=== PATIENT | male | born 1940 | race Caucasian/White ===

== ENCOUNTER 2017-08-01 16:11 | Emergency (ER) | payer OTHER ==
[2017-08-01 16:17] VITALS: BP 115/75; TEMP 97; BMI 32.5
--- NOTE | 2017-08-01 17:19 | ED.PDOC ---
General ED Provider: Dr. JOHANA PIMENTEL Chief Complaint: Dizziness Stated Complaint: Patient was at [facility], she thinks she passed out, daughter in the room says her mother got over heated and passed out. says she had this episode before. now she is on the bed, says she wants to go home. not dizzi at this time Time Seen by Physician: 17:17 Mode of Arrival: Walk-In Information Source: Patient Nursing and Triage Documentation Reviewed and Agree: Yes Reviewed sepsis parameters & appropriate labs ordered?: Yes System Inflammatory Response Syndrome: Not Applicable Sepsis Protocol: For patient's 13 years and over: Temp is 96.8 and below OR 101 and greater Pulse >90 BPM Resp >20/minute Acutely Altered Mental Status Are patient's symptoms suggestive of a new infection, such as: -Pneumonia -Skin, Soft Tissue -Endocarditis -UTI -Bone, Joint Infection -Implantable Device -Acute Abdominal Infection -Wound Infection -Meningitis -Blood Stream Catheter Infection -Unknown Neurological Complaint Exam - Syncope/Near Syncope Complaint/Exam Symptoms Are: Resolved Episodes Lasting: Minutes Number of Episodes: 1 Episodes Witnessed: No Loss of Consciousness: Yes Associated Head Trauma: No Activity at Onset: With exertion Aggravating: None Alleviating: Reports: Spontaneous resolution Associated Signs and Symptoms: Reports: Lightheadedness, Dizziness. Denies: Pain, Decreased oral intake, Vomiting, Diarrhea, GI blood loss, Short of air, Chest pain, Palpitations, Diaphoresis, Weakness, AMS, Numbness, Headache, Seizure, Remote head trauma, Recent head trauma Related History: Similar episode Cardiac Risk Factors: Reports: Hypertension GI Bleed Risk Factors: Reports: None Dysrhythmia Risk Factors: Reports: None Related Surgical History: Reports: None JVD Present: No Carotid Bruit Present: No Rectal Heme Positive: No Nystagmus Present: No Gag Reflex Present: Yes Meningeal Signs Positive: No Focal Weakness: Present: None Focal Sensory Loss: Present: None Gait: Normal [id number]: Normal Findings Romberg Test Positive: No Babinski Sign: Negative Right, Negative Left Heel to Toe Normal: Yes Differential Diagnoses: Metabolic Reaction, Vasovagal Episode, Other Quality Indicators for Cardiac Chest Pain: EKG in 10min. Review of Systems - Review Of Systems Constitutional: Reports: Malaise, Weakness Eyes: Reports: No symptoms Ears, Nose, Mouth, Throat: Reports: No symptoms Respiratory: Reports: No symptoms Cardiac: Reports: No symptoms GI: Reports: No symptoms : Reports: No symptoms Musculoskeletal: Reports: No symptoms Skin: Reports: No symptoms Neurological: Reports: No symptoms Endocrine: Reports: No symptoms Hematologic/Lymphatic: Reports: No symptoms All Other Systems: Reviewed and Negative Past Medical History - Past Medical History Previously Healthy: Yes Endocrine: Reports: None Cardiovascular: Reports: Hypertension Respiratory: Reports: None Hematological: Reports: None Gastrointestinal: Reports: None Genitourinary: Reports: None Neuro/Psych: Reports: Migraine Musculoskeletal: Reports: None Cancer: Reports: None - Surgical History General Surgical History: Reports: Tonsillectomy, Other (c section) - Family History Family History: Reports: None - Social History Smoking Status: Never smoker Hx Substance Use: No Alcohol Screening: None - Immunizations Tetanus Shot up to Date: No Physical Exam - Physical Exam Appearance: Well-appearing, No pain distress, Well-nourished Eyes: YANNICK, EOMI, Conjunctiva clear ENT: Ears normal, Nose normal, Oropharynx normal Respiratory: Airway patent, Breath sounds clear, Breath sounds equal, Respirations nonlabored Cardiovascular: RRR, Pulses normal, No rub, No murmur GI/: Soft, Nontender, No masses, Bowel sounds normal, No Organomegaly Musculoskeletal: Normal strength, ROM intact, No edema, No calf tenderness Skin: Warm, Dry, Normal color Neurological: Sensation intact, Motor intact, Reflexes intact, Cranial nerves intact, Alert, Oriented Psychiatric: Affect appropriate, Mood appropriate Interpretation - Radiology Interpretation Radiology Interpretation By: Radiologist Radiology Results: Negative Exam Interpreted: CT Scan - EKG Interpretation Time of EKG #1: 17:26 Rate: Normal Rhythm: Sinus Ectopy: None [place]: NL Re-Evaluation - Re-Evaluation Time of Re-Evaluation: 17:27 Status: Improved Critical Care Note - Critical Care Note Total Time (mins): 30 Course - Course Hematology/Chemistry: 08/01/17 16:55 08/01/17 16:55 Orders, Labs, Meds: Lab Review 08/01/17 08/01/17 16:55 16:55 WBC 13.18 H RBC 4.51 L Hgb 13.8 L Hct 40.9 L MCV 90.7 MCH 30.6 MCHC 33.7 RDW Coeff of Amadou 14.4 Plt Count 209 Immature Gran % (Auto) 0.4 Neut % (Auto) 71.8 Lymph % (Auto) 16.4 [place] % (Auto) 8.3 Eos % (Auto) 2.6 Baso % (Auto) 0.5 Immature Gran # (Auto) 0.1 Neut # (Auto) 9.5 H Lymph # (Auto) 2.2 [place] # (Auto) 1.1 Eos # (Auto) 0.3 Baso # (Auto) 0.1 Sodium 141 Potassium 3.5 Chloride 106 Carbon Dioxide 23 Anion Gap 15.5 BUN 26 H Creatinine 0.98 Estimated GFR (MDRD) 75.00 BUN/Creatinine Ratio 26.53 Glucose 109 Calcium 9.4 Total Bilirubin 0.8 AST 16 ALT 12 Alkaline Phosphatase 123 H Total Creatine Kinase 37 Troponin I < 0.0100 Total Protein 7.1 Albumin 3.5 Globulin 3.6 Albumin/Globulin Ratio 0.97 Orders Category Date Time Status EKG-(ED ONLY) Stat CARDIO 08/01/17 16:37 Completed CBC W/ AUTO DIFF Stat LAB 08/01/17 16:55 Completed COMPREHENSIVE METABOLIC PANEL Stat LAB 08/01/17 16:55 Completed CREATINE KINASE Stat LAB 08/01/17 16:55 Completed TROPONIN I Stat LAB 08/01/17 16:55 Completed CHEST, 2 VIEWS PA & LAT Stat RADS 08/01/17 16:[address] HEAD W/O CONTRAST Stat RADS 08/01/17 16:37 Completed Vital Signs: Temp Pulse Resp BP Pulse Ox 08/01/17 16:13 97.0 F L 79 16 115/75 92 L Departure - Departure Time of Disposition: 17:26 Disposition: HOME SELF-CARE Discharge Problem: Dizziness Heat exhaustion Qualifiers: Encounter type: initial encounter Qualified Code(s): T67.5XXA - Heat exhaustion , unspecified, initial encounter Instructions: Heat Exhaustion (DC) Condition: Stable Pt referred to PMD for follow-up: Yes IPMP verified?: No Additional Instructions: Increase Hydration ASA 81 PO DAILY KEEP F/U WITH pmd Allergies/Adverse Reactions: Allergies No Known Allergies Allergy (Unverified 08/01/17 16:17) Home Medications: Ambulatory Orders 1 [No Reported Medications] 08/01/17 Disposition Discussed With: Patient, Family
--- NOTE | 2017-08-01 17:20 | CT ---
EXAM: Noncontrast CT head. HISTORY: Dizziness COMPARISON: None available at the time of dictation. TECHNIQUE: Noncontrast CT head was performed with axial, coronal and sagittal reconstructions. Findings: There is preservation of the liu-white differential without evidence of definitive large vessel acut e cortical infarct identified. No acute intracranial hemorrhage is identified. No midline shift is i dentified. No definitive intracranial mass lesion is identified within technical limitations of nonco ntrast CT. The basal cisterns are patent. The ventricles are normal in size and configuration. Limi maryellen evaluation of the skull demonstrates no visualized lucent skull acute fractures or destructive os seous lesions identified within the visualized portions of the skull. Partially visualized paranasal sinuses and mastoid air cells appear relatively clear in the visualized regions. Impression: 1. No acute intracranial hemorrhage or definitive large vessel acute cortical infarct identified.
--- NOTE | 2017-08-02 06:32 | DI ---
EXAM: PA and lateral views the chest HISTORY: Dizziness COMPARISON: None available FINDINGS: There is elevation of the right hemidiaphragm. Buttons overlie the left hemithorax. A left basilar ca lcified granuloma is seen. No focal consolidation, pleural effusion or pneumothorax is seen. The cardiomediastinal silhouette is within normal limits. IMPRESSION: Right hemidiaphragm elevation. Otherwise no acute cardiopulmonary findings. Evidence of prior granulomatous infection.
== END 2017-08-01 17:52 | disposition home or self-care (01) ==
LOC: ED 16:11
DX: R42 Dizziness and giddiness (principal); T67.5XXA Heat exhaustion, unspecified, initial encounter; I10 Essential (primary) hypertension; R53.1 Weakness
CPT/HCPCS: 36415; 80053; 82550; 84484; 85025; 93005; 93010; 99284